=== PATIENT | male | born 1955 | race Caucasian/White ===

== ENCOUNTER 2016-09-04 08:57 | Emergency (ER) | payer BC ==
[2016-09-04 09:08] VITALS: BP 154/109
--- OUTSIDE RECORDS SUMMARY | 2016-09-04 10:16 | XMS REPORT | Continuity of Care Document ---
:1955 Author Organization [facility] ([facility]) Address [place] [address] Phone [phone] Care Team Providers Name Role Phone Cary Prescott Primary Care Provider [phone] Source Comments This disclosure is being made pursuant to the Care Everywhere program, applicable federal and state laws, and may not contain all informaitonavailable regarding this patient.[facility] ([facility]) Active Allergies and Adverse Reactions Allergen Noted Date Severity Reactions Comments Metronidazole 01/14/2016 High Thrombocytopenia Current Medications Prescription Sig. Disp. Refills Start Date End Date Status docusate 100 mg Take 1 capsule (100 60 capsule 10 11/05/2015 Active capsule mg total) by mouth 2 times daily. sennosides 8.6 mg Take 1-2 tablets 60 tablet 10 11/05/2015 Active tablet (8.6-17.2 mg total) by mouth daily as needed. multivitamin tablet Take 1 tablet by Active mouth daily. polyethylene glycol Take 17 g by mouth 30 Each 01/14/2016 Active 3350 17 gram packet 2 times daily as needed for Other (Constipation). ondansetron 4 mg Take 1 tablet (4 mg 0 01/14/2016 Active disintegrating tablet total) by mouth every 8 hours as needed. oxyCODONE-acetaminoph Take 1 tablet by 90 tablet 0 01/14/2016 Active en 5-325 mg per mouth every 6 tablet hours. Do NOT exceed 4000 mg of acetaminophen per 24 hours. escitalopram oxalate Take 10 mg by mouth Active 10 mg tablet daily. ondansetron 8 mg Take 8 mg by mouth 02/29/2016 Active tablet as needed. HYDROmorphone 2 mg Take 1 tablet by 02/25/2016 Active tablet mouth as needed. cyclobenzaprine 10 mg Take 10 mg by mouth 02/25/2016 Active tablet 2 times daily. ketoconazole 2 % Apply topically 03/09/2016 Active shampoo daily. Saccharomyces Take 250 mg by Active boulardii (FLORASTOR) mouth 2 times 250 mg capsule daily. 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 Resolved Problems Problem Noted Date Resolved Date Thrombocytopenia due to drugs 01/14/2016 01/14/2016 Fever, unspecified 12/22/2015 01/14/2016 Severe sepsis 12/22/2015 01/14/2016 Social History Tobacco Use Types Packs/Day Years Used Date Never Smoker Smokeless Tobacco: Never Used Tobacco Cessation:Counseling Given: Yes Comments: Alcohol Use Drinks/Week oz/Week Comments No Last Filed Vital Signs Vital Sign Reading Time Taken Blood Pressure 148/82 03/15/2016 8:27 AM CDT Pulse 89 03/15/2016 8:27 AM CDT Temperature 36.8 C (98.2 F) 03/15/2016 8:27 AM CDT Respiratory Rate 22 02/25/2016 2:50 PM CDT Height 1.727 m (5' 8") 02/25/2016 12:57 PM CDT Weight 65.772 kg (145 lb) 02/25/2016 12:57 PM CDT Body Mass Index 22.05 02/25/2016 12:57 PM CDT Oxygen Saturation 95% 02/25/2016 2:50 PM CDT Plan of Care Health Maintenance Due Date Last Done Comments HCV Screening 1955 Hepatitis B Vaccine (1 of 3 - Primary Series) 1955 Tdap Vaccine 1964 Lipid Disorder Screening 08/12/1971 Td Vaccine 08/12/1971 Colonoscopy 2003 Prostate Cancer Screening 08/12/2003 Zoster Vaccine 2013 Influenza Vaccine: Seasonal (#1) 12/21/2015 Results from Last 3 Months Not on file
--- NOTE | 2016-09-04 10:23 | ERNOTE ---
Medical Problem HPI - Narrative Date of Service: 09/04/16 - General Chief Complaint: Laceration Time Seen by Provider: 09/04/16 09:58 Source: patient, family, RN notes reviewed Exam Limitations: no limitations - Immun/Allergies/Home Medications Immunizations: IMMUNIZATION HX Immunizations Up to Date Yes History of Influenza Vaccine Yes Hx Pneumococcal Vaccination Yes Allergies/Adverse Reactions: Allergies metronidazole Adverse Reaction (Severe, Verified 09/04/16 09:08) thrombocytopenia (Review [facility] record) Home Medications: HOME MEDICATIONS Cyclobenzaprine HCl [Flexeril] 10 mg PO BID PRN #60 tablet 02/25/16 [Last Taken Unknown] Escitalopram Oxalate [Lexapro] 20 mg PO DAILY #30 tab 02/25/16 [Last Taken Unknown] - Pain Score Pain Score #1 Pain Score: 0 - History of Present History Narrative: 61 y/o male brought to the ED in wheelchair by his family for a scalp laceration. He was getting ready for [employer] when he lost his balance and fell. He struck the right side of his head, causing the injury. He denies any LOC. He reports that he is fine and really did not want to come here, but his family felt he should have the wound looked at. He denies any pain at this time. Review of Systems - Review of Systems Constitutional: Present: no symptoms reported EYE: Present: no symptoms reported ENT: Absent: ear discharge, nasal drainage Respiratory: Absent: shortness of breath, cough Cardiology: Absent: chest pain, palpitations, syncope Gastrointestinal/Abdominal: Absent: nausea, vomiting Genitourinary: Present: no symptoms reported Musculoskeletal: Present: no symptoms reported Skin: Present: lumps. Absent: rash, lesions Neurological: Present: pre-existing deficit. Absent: headache, dizziness/light- headedness Endocrine: Present: no symptoms reported Hematologic/Lymphatic: Absent: easy bruising, easy bleeding Psych: Present: no symptoms reported - Patient's Past Medical History Patient History - Medical: Anxiety, Other - cervical spondylosis, diverticulitis Patient History - Cardiac/Respiratory: Hypertension, TIA Patient History - Cancer: No Hx of Cancer Patient History - Surgical Procedures: Back Surgery, T & A, Hernia Repair Patient History - Other: None - Family History Father Family History - Medical: Diabetes Type 2, Diabetes Type 2 Insulin Dependent - Social History Living Situations: home Abuse History: No History of abuse Psych History: No pertinent hx Smoking Status: Never smoker Alcohol Use: none Drug Use: none - Immunizations Immunizations Up to Date: Yes - Reports tetanus vaccine is current Hx Pneumococcal Vaccination: Yes History of Influenza Vaccine: Yes Physical Exam - Physical Exam General Appearance: Present: wd/wn, alert, no apparent distress Respiratory: Present: no respiratory distress, no accessory muscle use Neurological Exam: Present: alert, oriented, normal mood/affect Skin Exam: Present: normal color, warm/dry, other - Right parietal scalp laceration/contusion ED Progress - Vital Signs Patient's Vital Signs:: I have reviewed the patient's vital signs. Vital Signs: Vital Signs 09/04/16 09:03 Temperature 37.1 C Pulse Rate 103 H Respiratory 16 Rate Blood Pressure 154/109 O2 Sat by Pulse 95 Oximetry - Progress/Reassessment Chief Complaint: Laceration Progress:: Improved Procedures Right Head Length of Repair/Wound (cm): 2.5 Wound's Depth/Shape: irregular, contused tissue Wound Explored: clean, to base, in bloodless field, no foreign body Wound Intervention: other - cleansed with soap and water Wound Repaired With: Dermabond Complications: Pt inga procedure well Comment: Recommended closure with howie, patient did not want to do this but family convinced him to allow me to dermabond the wound Departure - Departure Clinical Impression: Scalp laceration Qualifiers: Encounter type: initial encounter Qualified Code(s): S01.01XA - Laceration without foreign body of scalp, initial encounter Disposition: Home self-care Condition: Good Instructions: Tissue Adhesive Wound Care
== END 2016-09-04 10:20 | disposition home or self-care (01) ==
LOC: ER 08:57
PROC: 0JQ00ZZ Repair Scalp Subcutaneous Tissue and Fascia, Open Approach (ICD-10-PCS; principal; 2016-09-04)
DX: S01.01XA Laceration without foreign body of scalp, initial encounter (principal); W01.10XA Fall on same level from slipping, tripping and stumbling with subsequent striking against unspecified object, initial encounter; F41.9 Anxiety disorder, unspecified; I10 Essential (primary) hypertension